=== PATIENT | female | born 1970 | race African-American/Black ===

== ENCOUNTER 2022-10-05 21:40 | Emergency (ER) | payer OTHER ==
[2022-10-05 22:08] VITALS: BP 110/90; PULSE 68; RESP 18; TEMP 98.1; BMI 25.8
[2022-10-05] MEDS ORDERED: DIPHTH,PERTUSS(ACELL),TET 0.5 ML DISP.SYRIN IM ONE ×2 (22:48→22:58)
[2022-10-05] MEDS ORDERED: AMOX TR/POT CLAV 875MG/125MG TABLETS (FP) PO ONE (22:48)
[2022-10-05] MEDS ORDERED: IBUPROFEN 400 MG TABLET (FP) PO ONE ×2 (22:51→22:58)
[2022-10-05] MEDS ORDERED: AMOX TR/POT CLAV 875MG/125MG TABLETS (FP) ONE (22:58)
== END 2022-10-05 23:13 | disposition home or self-care (01) ==
LOC: JER 21:40
PROC: 3E0234Z Introduction of Serum, Toxoid and Vaccine into Muscle, Percutaneous Approach (ICD-10-PCS; principal; 2022-10-05)
DX: S70.12XA Contusion of left thigh, initial encounter (principal); W50.3XXA Accidental bite by another person, initial encounter
CPT/HCPCS: 90471; 90715; 99283-25